=== PATIENT | male | born 1985 | race Caucasian/White ===

== ENCOUNTER 2017-03-22 15:59 | Emergency (ER) | payer OTHER ==
[2017-03-22 16:10] VITALS: BMI 28.1
[2017-03-22] MEDS ORDERED: IBUPROFEN 400 MG TABLET (FP) PO ONE ×2 (16:22→16:27)
[2017-03-22] MEDS ORDERED: DIPHTH,PERTUSS(ACELL),TET 0.5 ML DISP.SYRIN IM ONE (16:30)
--- NOTE | 2017-03-22 16:30 | PDOC ---
History of Present Illness - General Chief Complaint: Injury Stated Complaint: RIGHT INDEX FINGER INJURY AT WORK Time Seen by Provider: 03/22/17 16:09 - History of Present Illness Initial Comments: 32 year old male with no significant past medical history presenting with right index finger pain after a workplace accident. He was using a sledge hammer to strike wooden stakes and was bumped from behind during on strike which caused his right index finger (gripping the sledgehammer) to come into contact with the side of the wooden stake. He immediately had a lot of paina nd bleeding from the volar aspect of his distal 2nd digit and noticed a piece of his finger was displaced so he removed it. 03/22/17 16:22 Past History - Past Medical History Allergies/Adverse Reactions: Allergies Allergy/AdvReac Type Severity Reaction Status Date / Time No Known Allergies Allergy Verified 03/22/17 16:03 Home Medications: Ambulatory Orders Cephalexin [Keflex] 500 mg PO BID #14 capsule 03/22/17 Other medical history: pt denies - Psycho/Social/Smoking Cessation Hx Anxiety: No Suicidal Ideation: No Smoking History: Never smoked Information on smoking cessation initiated: No Hx Alcohol Use: Yes (occasional) Drug/Substance Use Hx: No Substance Use Type: None Review of Systems - Review of Systems Constitutional: No: Chills, Diaphoresis, Fever HEENTM: No: Blurred Vision, Double Vision Respiratory: No: Cough, Shortness of Breath Cardiac (ROS): No: Chest Pain ABD/GI: No: Diarrhea, Nausea, Vomiting : No: Burning, Dysuria Integumentary: Yes: Lesions Neurological: No: Headache, Numbness *Physical Exam - Vital Signs Last Vital Signs Temp Pulse Resp BP Pulse Ox 18 0/0 03/22/17 16:00 03/22/17 16:00 - Physical Exam General Appearance: Yes: Nourished, Appropriately Dressed. No: Apparent Distress HEENT: positive: EOMI, LEYLA, Normal Voice Neck: positive: Trachea midline, Normal Thyroid, Supple. negative: Tender, Rigid Respiratory/Chest: positive: Lungs Clear, Normal Breath Sounds. negative: Chest Tender, Respiratory Distress Cardiovascular: positive: Regular Rhythm, Regular Rate, S1, S2. negative: Murmur Musculoskeletal: positive: Other (Volar tip of his right 2nd digit has a skin and soft tissue avulsion measuring 1cm x .75 cm with minimal bleeding. Pain over the entire finger but full motion and sensation. ) Extremity: positive: Normal Capillary Refill, Normal Range of Motion. negative : Normal Inspection (per above) Integumentary: positive: Dry, Warm. negative: Normal Color Neurologic: positive: Fully Oriented, Alert Procedures - Laceration/Wound Repair Right Volar 2nd digit Wound Length: to 2.5 cm Wound Explored: clean, no foreign body present Wound's Depth, Shape: superficial, irregular Irrigated w/ Saline: Yes Betadine Prep: No Anesthesia: 1% Lidocaine Amount of Anesthetic (ccs): 4 (digital block) Wound Repaired With: Sutures Suture Size/Type: 4:0, other (Absorbable) Number of Sutures: 3 Layer Closure: No Sterile Dressing Applied: Yes Splint Applied: No Progress: Patient was anesthetized with 4 ml of lidocaine 1% in a digital block into the flexor tendon sheath of his right index finger. 500 ml of sterle water were used to irrigate the wound under a pressure shield attached to a 30cc syringe. Three sutures were placed at the distal tip of his finger to approximate a small flap. Surgi-cell was applied to the avulsed area of tissue and skin with good adherence and hemostasis. He was neurovascularly intact before and after the procedure and he tolerated the procedure well without pain. Bacitracin and a loose dressing was applied to the wound closure. 03/22/17 17:44 03/22/17 17:49 ED Treatment Course - RADIOLOGY Radiology Studies Ordered: Category Date Time Status FINGER(S) RIGHT [RAD] Stat Radiology 03/22/17 16:09 Ordered Medical Decision Making - Medical Decision Making 32 year old healthy male with right index finger tip trauma and fracture of tip with displacement on xray. No need for urgent ortho consult. the ound was irrigated with 500 ml NS and three stitches and surgicell. He was given motrin 800 for pain 1g Ancef and 500 Keflex BID for 7 days. He was also given ortho follow up instructions and return instructions within the next two days. 03/22/17 17:47 *DC/Admit/Observation/Transfer Diagnosis at time of Disposition: Injury of right index finger - Discharge Dispostion Disposition: HOME Condition at time of disposition: Stable Admit: No - Prescriptions Prescriptions: Cephalexin [Keflex] 500 mg PO BID #14 capsule - Referrals Referrals: Cali Dash MD [Staff Physician] - - Patient Instructions Additional Instructions: You were seen for injury to your right hand. Please come back to the ED in 1-2 days. Please do not get that area wet or dirty until you see us in the ED. You also need to set up an appointment with the orthopedic hand physician whose name is written on this form. Please take your antibiotics as prescribed for the next 7 days. Please return to the ED if you have fevers, chills, worsening pain of your hand, increased swelling of your hand, any fluid leaking from your hand, or any bad smell from your hand.
[2017-03-22 16:52] VITALS: BP 142/85; PULSE 52; TEMP 98.5
--- NOTE | 2017-03-22 17:08 | PDOC ---
Attending Attestation - Resident Resident Name: Leticia Camargo - ED Attending Attestation I have performed the following: I have examined & evaluated the patient, The case was reviewed & discussed with the resident, I agree w/resident's findings & plan, Exceptions are as noted - HPI HPI: 32 yo M presents with R index finger injury after he was using a sledgehammer to strike wooden stakes, bumped from behind, causing finger to slam between the stake and sledgehammer. He states that he had severe pain, noted bleeding from the finger, and he pulled off a piece of skin that was partially detached. No other injuries. - Physicial Exam PE: GENERAL: Awake, alert, and fully oriented, in no acute distress HEAD: No signs of trauma NEUROLOGICAL: Cranial nerves II through XII grossly intact. Normal speech, normal gait SKIN: Warm, Dry, normal turgor, no rashes. R index finger with partial skin avulsion to the pad of the finger, mild oozing of blood. - Medical Decision Making Patient with partial skin avulsion of the finger after work-related injury. Will obtain XR to r/o fx. Will repair the portion of skin that is intact. Due to the nature of the injury, it will not be possible to create a flap to cover it. Will place surgicel to the avulsed portion that cannot be closed.
[2017-03-22] MEDS ORDERED: CEFAZOLIN 1 GM in DEXTROSE 5%-WATER - 50 ML IVPB ONE (17:17)
[2017-03-22] MEDS ORDERED: ceFAZolin SODIUM 1 GM VIAL ONE (17:20)
== END 2017-03-22 18:05 | disposition home or self-care (01) ==
LOC: FER 15:59
PROC: 0HQFXZZ Repair Right Hand Skin, External Approach (ICD-10-PCS; principal; 2017-03-22)
PROC: 3E03329 Introduction of Other Anti-infective into Peripheral Vein, Percutaneous Approach (ICD-10-PCS; 2017-03-22)
PROC: 3E0234Z Introduction of Serum, Toxoid and Vaccine into Muscle, Percutaneous Approach (ICD-10-PCS; 2017-03-22)
DX: S61.210A Laceration without foreign body of right index finger without damage to nail, initial encounter (principal); W23.0XXA Caught, crushed, jammed, or pinched between moving objects, initial encounter; Y93.89 Activity, other specified; Y92.9 Unspecified place or not applicable; Y99.0 Civilian activity done for income or pay
CPT/HCPCS: 73140-TC-RT; 99282-25

== ENCOUNTER 2017-03-24 17:56 | Emergency (ER) | payer OTHER ==
[2017-03-24 18:59] VITALS: BP 145/67; PULSE 73; TEMP 98.7; BMI 23.0
--- NOTE | 2017-03-24 19:12 | PDOC ---
History of Present Illness <Mary Chirinos - Last Filed: 03/24/17 19:15> - General History Source: Patient (Patient is here for wound check from accident to secon right finger digit two days ago. Will follow up with in one week for suture removal. ) Exam Limitations: No Limitations <Gerald Charles - Last Filed: 03/24/17 19:18> - General Chief Complaint: Revisit,Wound Recheck Stated Complaint: WOUND CHECK Time Seen by Provider: 03/24/17 18:25 Past History - Past Medical History Other medical history: DENIES - Psycho/Social/Smoking Cessation Hx Anxiety: No Suicidal Ideation: No Smoking History: Never smoked Have you smoked in the past 12 months: No Information on smoking cessation initiated: No Hx Alcohol Use: No Drug/Substance Use Hx: No Substance Use Type: None <Mary Chirinos - Last Filed: 03/24/17 19:15> <Gerald Charles - Last Filed: 03/24/17 19:18> - Past Medical History Allergies/Adverse Reactions: Allergies Allergy/AdvReac Type Severity Reaction Status Date / Time No Known Allergies Allergy Verified 03/22/17 16:03 Home Medications: Ambulatory Orders Cephalexin [Keflex] 500 mg PO BID #14 capsule 03/22/17 Review of Systems - Review of Systems Able to Perform ROS?: Yes All Other Systems: Reviewed and Negative <Gerald Charles - Last Filed: 03/24/17 19:18> *Physical Exam - Vital Signs Last Vital Signs Temp Pulse Resp BP Pulse Ox 98.7 F 73 20 145/67 99 03/24/17 17:56 03/24/17 17:56 03/24/17 17:56 03/24/17 17:56 03/24/17 17:56 <Mary Chirinos - Last Filed: 03/24/17 19:15> - Vital Signs Last Vital Signs Temp Pulse Resp BP Pulse Ox 98.7 F 73 20 145/67 99 03/24/17 17:56 03/24/17 17:56 03/24/17 17:56 03/24/17 17:56 03/24/17 17:56 - Physical Exam Extremity: positive: Other (Right hand second digit no sign of infection. Change of dressing. ) Neurologic: positive: Other (Second right digit neurovascular intact. ) <Gerald Charles - Last Filed: 03/24/17 19:18> *DC/Admit/Observation/Transfer - Discharge Dispostion Admit: No <Mary Chirinos - Last Filed: 03/24/17 19:15> - Attestations Scribe Attestion: 03/24/17 19:18 Documentation prepared by Gerald Charles, acting as medical office administrator for Mary Chirinos MD. <Gerald Charles - Last Filed: 03/24/17 19:18> Diagnosis at time of Disposition: Injury of right index finger Qualifiers: Encounter type: subsequent encounter Qualified Code(s): S69.91XD - Unspecified injury of right wrist, hand and finger(s), subsequent encounter - Discharge Dispostion Disposition: HOME Condition at time of disposition: Improved - Patient Instructions Printed Discharge Instructions: How to Care for a Surgical Wound Additional Instructions: Clean and dry, Avoid getting wet or dirty return for suture removal in 7-9 days
== END 2017-03-24 19:16 | disposition home or self-care (01) ==
LOC: FER 17:56
DX: S69.91XD Unspecified injury of right wrist, hand and finger(s), subsequent encounter (principal); X58.XXXD Exposure to other specified factors, subsequent encounter; Y93.9 Activity, unspecified
CPT/HCPCS: 99281-25